=== PATIENT | male | born 1950 | race Two or more races ===

== ENCOUNTER → 2016-11-21 | Outpatient (CLI) | payer MEDICARE ==
[2016-11-21 09:15] LABS: Urine RBC None Seen /hpf (0 - 3)
[2016-11-21 09:33] LABS: Basophils # (auto) 0.1 uL; Basophils % (auto) 0.7 % (0.0-2.0); CONDITION Y; Eosinophils # (auto) 0.1 uL; Eosinophils % (auto) 0.9 % (0.0-7.0); Hematocrit 50.6 % (41.0-53.0); Hemoglobin 17.5 g/dL (13.5-17.5); Lymphocytes # (auto) 2.2 uL; Lymphocytes % (auto) 26.8 % (10.0-50.0); Mean Corpuscular Hemoglobin 33.2 pg (28.0-32.0); Mean Corpuscular Hgb Conc. 34.5 g/dL (32.0-36.0); Mean Platelet Volume 9.6 fL (7.4-10.4); Monocytes # (auto) 0.4 uL; Monocytes % (auto) 4.4 % (0.0-12.0); Neutrophils # (auto) 5.4 uL; Neutrophils % (auto) 67.2 % (37.0-80.0); Platelet Count (auto) 240 10^3/uL (140-450); Red Cell Distribution Width 13.2 % (11.6-16.0); White Blood Cell 8.1 10^3/uL (4.4-10.8)
[2016-11-21 09:37] LABS: Urine Bilirubin Negative (Negative); Urine Blood Negative /uL (Negative); Urine Color Yellow (Yellow); Urine Glucose Normal (Normal); Urine Ketone Negative (Negative); Urine Mucus FEW (None Seen); Urine Nitrite Negative (Negative); Urine Urobilinogen Normal (Negative)
[2016-11-21 10:13] LABS: Albumin 3.9 g/dL (3.4-5.0); BUN/Creatinine Ratio 13.2; Bilirubin, Total 1.1 mg/dL (0.2-1.0); Calcium 8.9 mg/dL (8.5-10.1); Total Protein 7.8 g/dL (6.4-8.2)
[2016-11-21 10:28] LABS: Temperature: 24.3 C (20.0-25.0)
== END | disposition home or self-care (01) ==
LOC: LAB 06:38
PROVIDERS: ATTEND Family Medicine
DX: E78.5 Hyperlipidemia, unspecified (principal)
CPT/HCPCS: 36415; 80053; 80061; 81001; 82306; 82607; 82746; 83036; 84443; 85025

== ENCOUNTER → 2017-05-11 | Outpatient (CLI) | payer MEDICARE | END | disposition home or self-care (01) | LOC: LAB 06:42 | PROVIDERS: ATTEND Family Medicine | DX: N40.0 Benign prostatic hyperplasia without lower urinary tract symptoms (principal) | CPT/HCPCS: 84153 ==